=== PATIENT | female | born 1960 | race Caucasian/White ===

== ENCOUNTER → 2024-10-17 08:13 | Outpatient (REF) | payer BC, SELFPAY ==
--- NOTE | 2024-10-17 09:35 | PTCARENOTE ---
#22 placed Rt AC. Bubble study done with Lauryn, ECHO. INT d/c'd. pressure held. No bleeding noted.
== END ==
LOC: RCS 08:13
PROVIDERS: ATTENDING PHYSICIAN Internal Medicine Interventional Cardiology; FAMILY PHYSICIAN Nurse Practitioner Gerontology
DX: R07.89 Other chest pain (principal); R00.2 Palpitations
CPT/HCPCS: 93306

== ENCOUNTER → 2025-10-17 06:50 | Outpatient (REF) | payer OTHER, SELFPAY | LOC: RAD 06:50 | PROVIDERS: ATTENDING PHYSICIAN Internal Medicine Interventional Cardiology; FAMILY PHYSICIAN Nurse Practitioner Gerontology | DX: M79.604 Pain in right leg (principal); M79.605 Pain in left leg | CPT/HCPCS: 93922; 93925; 93970 ==